=== PATIENT | male | born 1995 | race Caucasian/White ===

== ENCOUNTER 2021-08-24 01:18 | Emergency (ER) | payer SELFPAY ==
[~2021-08-24] VITALS: Ht 170.2 cm; Wt 74.6 kg
[2021-08-24 01:25] VITALS: BP 128/83
== END 2021-08-24 02:48 | disposition home or self-care (01) ==
LOC: ER 01:18
DX: R07.89 Other chest pain (principal); Z90.49 Acquired absence of other specified parts of digestive tract; Z86.59 Personal history of other mental and behavioral disorders
CPT/HCPCS: 71045; 93005; 99283